=== PATIENT | female | born 1975 | race Two or more races ===

== ENCOUNTER 2021-10-31 17:18 | Emergency (ER) | payer MEDICAID ==
[~2021-10-31] VITALS: Ht 152.4 cm; Wt 90.7 kg
[~2021-10-31 17:18] MED LIST: ACET-1158 PO; BENA10TA15 OR; GLIP5TAB12 OR; METF-370
[2021-10-31 23:18] VITALS: BP 126/78
== END 2021-10-31 23:19 | disposition home or self-care (01) ==
LOC: ER 17:18
DX: U07.1 COVID-19 (principal); J45.909 Unspecified asthma, uncomplicated; E11.9 Type 2 diabetes mellitus without complications; F17.210 Nicotine dependence, cigarettes, uncomplicated; Z79.899 Other long term (current) drug therapy; Z88.0 Allergy status to penicillin
CPT/HCPCS: 36415; 71045; 87426; 93005